=== PATIENT | male | born 1945 | race Caucasian/White ===

== ENCOUNTER → 2020-01-24 | Outpatient (CLI) | payer MEDICARE ==
[~2020-01-24] MED LIST: ABAC300; COQ1050 MG PO; DICLOFENAC 50MG PO; ENOX40I SC; GLUCOSAMINE CHONDR PO; HYDMOR2 PO; HYDR1TAB94 PO; KRILL OIL500 MG PO; LISINOPRIL 10MG PO
== END | disposition home or self-care (01) ==
LOC: LAB SHORT 15:18 → PLD 15:18
DX: C44.1122 Basal cell carcinoma of skin of right lower eyelid, including canthus (principal)
CPT/HCPCS: 88305

== ENCOUNTER → 2021-12-31 | Outpatient (CLI) | payer MEDICARE ==
[~2021-12-31] MED LIST changes: +METF500
== END | disposition home or self-care (01) ==
LOC: LAB SHORT 08:40 → LAB 08:40
DX: B37.2 Candidiasis of skin and nail (principal)
CPT/HCPCS: 87070; 87077; 87186; 87205

== ENCOUNTER 2022-01-12 11:59 | Day surgery (SDC) | payer MEDICARE, OTHER ==
[~2022-01-12] VITALS: Ht 177.8 cm; Wt 76.3 kg
[~2022-01-12 11:59] MED LIST changes: -METF500
[2022-01-12] MEDS ORDERED: METF500 (12:33)
== END 2022-01-12 15:41 | disposition home or self-care (01) ==
LOC: ORSCSDS 11:59
PROVIDERS: Internal Medicine Gastroenterology
PROC: 0DBK8ZX Excision of Ascending Colon, Via Natural or Artificial Opening Endoscopic, Diagnostic (ICD-10-PCS; principal; 2022-01-12 13:15)
PROC: 0DBM8ZX Excision of Descending Colon, Via Natural or Artificial Opening Endoscopic, Diagnostic (ICD-10-PCS; principal; 2022-01-12 13:15)
DX: Z12.11 Encounter for screening for malignant neoplasm of colon (principal); D12.2 Benign neoplasm of ascending colon; D12.4 Benign neoplasm of descending colon; K64.8 Other hemorrhoids; E11.9 Type 2 diabetes mellitus without complications; I10 Essential (primary) hypertension; Z85.828 Personal history of other malignant neoplasm of skin; Z79.84 Long term (current) use of oral hypoglycemic drugs; Z79.899 Other long term (current) drug therapy
CPT/HCPCS: 82947; 88305; J2704; J7120